=== PATIENT | male | born 1950 | race Caucasian/White ===

== ENCOUNTER 2020-07-03 09:15 | Emergency (ER) | payer OTHER ==
[~2020-07-03] VITALS: Ht 180 cm; Wt 90.0 kg
--- NOTE | 2020-07-03 09:31 | ED Abdominal Pain ---
General Chief Complaint: Abdominal/GI Problems Stated Complaint: RUQ PAIN Source of Information: Patient, EMS Notes Reviewed, Residential Records, RN/MD History of Present Illness Date Seen by Provider: Jul 03, 2020 Time Seen by Provider: 09:15 Initial Comments This patient is a 69-year-old male that recently admitted to the local snf presents to the emergency department with complaint of right upper quadrant abdominal pain. Patient is not very verbal and does not give appropriate history. Patient's medical history from the snf states the patient has history of renal failure and congestive heart failure and dementia/altered mental status. Reportedly the patient was complaining of right upper quadrant abdominal pain. Patient's abdomen is soft and nontender at this time. We'll do medical screening exam and evaluate. Further as needed. Timing/Duration: 1-3 Hours Severity/Quality: Moderate Location: RUQ Radiation: No Radiation Allergies and Home Medications Allergies Coded Allergies: No Known Drug Allergies (Unverified , 07/03/20) Patient Home Medication List Home Medication List Reviewed: Yes Review of Systems Review of Systems Constitutional: No no symptoms reported; see HPI; No chills, No diaphoresis, No dizziness, No fever, No malaise, No weakness, No weight gain, No weight loss, No other EENTM: No No Symptoms Reported, No See HPI, No Blurred Vision, No Double Vision, No Eye Pain, No Eye Tearing, No Ear Drainage, No Ear Pain, No Mouth Pain, No Mouth Swelling, No Nose Congestion, No Nose Pain, No Throat Pain, No Throat Swelling, No Other Respiratory: Denies No Symptoms Reported, Denies See HPI, Denies Cough, Denies Orthopnea, Denies Shortness of Air, Denies SOA With Exertion, Denies SOA at Rest, Denies Stridor, Denies Wheezing, Denies Other Cardiovascular: Denies No Symptoms Reported, Denies See HPI, Denies Chest Pain, Denies Edema, Denies Irregular Heart Rate, Denies Lightheadedness, Denies Palpitations, Denies Syncope, Denies Other Gastrointestinal: Denies No Symptoms Reported; See HPI; Denies Abdomen Distended; Abdominal Pain; Denies Blood Streaked Stools, Denies Constipated, Denies Diarrhea, Denies Difficulty Swallowing, Denies Nausea, Denies Poor Appetite, Denies Poor Fluid Intake, Denies Rectal Bleeding, Denies Vomiting, Denies Other Genitourinary: Denies No Symptoms Reported, Denies See HPI, Denies Burning, Denies Discharge, Denies Drainage, Denies Frequency, Denies Flank Pain, Denies Hematuria, Denies Incontinence, Denies Pain, Denies Urgency, Denies Other Musculoskeletal: No no symptoms reported, No see HPI, No back pain, No gout, No joint pain, No joint swelling, No muscle pain, No muscle stiffness, No muscle cramps, No muscle twitching, No muscle weakness, No neck pain, No other Skin: No no symptoms reported, No see HPI, No change in color, No change in hair/nails, No dryness, No hx of skin cancer, No lesions, No lumps, No pruritus, No rash, No other Psychiatric/Neurological: Denies No Symptoms Reported, Denies See HPI, Denies Anxiety, Denies Depressed, Denies Emotional Problems, Denies Headache, Denies Numbness, Denies Paresthesia, Denies Pre-Existing Deficit, Denies Seizure, Denies Tingling, Denies Tremors, Denies Weakness, Denies Other All Other Systems Reviewed Negative Unless Noted: Yes Past [id number]-[id number] Hx Patient Social History Alcohol Use: Denies Use Recreational Drug Use: No Smoking Status: Current Everyday Smoker Type Used: Cigarettes Recent Hopitalizations: No Physical Abuse: No Sexual Abuse: No Mistreated: No Fear: No Seasonal Allergies Seasonal Allergies: No Past Medical History Surgeries: No Respiratory: No Cardiac: Yes Hypertension, Irregular Heartbeat Neurological: Yes Dementia Genitourinary: Yes Renal Failure Gastrointestinal: No Musculoskeletal: No Endocrine: No HEENT: No Cancer: No Psychosocial: No Integumentary: No Blood Disorders: No Physical Exam Vital Signs Vital Signs - First Documented 07/03/20 09:27 Temp 36.2 Pulse 93 Resp 18 B/P (MAP) 135/87 (103) O2 Delivery Room Air Capillary Refill : Height/Weight/BMI Height: '" Weight: lbs. oz. kg; BMI Method: General Appearance: WD/WN, no apparent distress Respiratory: chest non-tender, lungs clear, normal breath sounds, no respiratory distress, no accessory muscle use Cardiovascular: normal peripheral pulses, regular rate, rhythm, no edema, no gallop, no JVD, no murmur Gastrointestinal: normal bowel sounds, non tender, soft, no organomegaly, no pulsatile mass Extremities: normal range of motion, non-tender, normal inspection, no pedal edema, no calf tenderness, normal capillary refill, pelvis stable Back: normal inspection, no CVA tenderness, no vertebral tenderness Skin: normal color, warm/dry Progress/Results/Core Measures Results/Orders Lab Results Laboratory Tests Test 07/03/20 09:34 Range/Units White Blood Count 15.1 H 4.3-11.0 10^3/uL Red Blood Count 5.23 4.35-5.85 10^6/uL Hemoglobin 14.8 13.3-17.7 G/DL Hematocrit 43 40-54 % Mean Corpuscular Volume 83 80-99 FL Mean Corpuscular Hemoglobin 28 25-34 PG Mean Corpuscular Hemoglobin Concent 34 32-36 G/DL Red Cell Distribution Width 13.8 10.0-14.5 % Platelet Count 156 130-400 10^3/uL Mean Platelet Volume 11.5 H 7.4-10.4 FL Immature Granulocyte % (Auto) 0 % Neutrophils (%) (Auto) 80 H 42-75 % Lymphocytes (%) (Auto) 9 L 12-44 % Monocytes (%) (Auto) 11 0-12 % Eosinophils (%) (Auto) 0 0-10 % Basophils (%) (Auto) 0 0-10 % Neutrophils # (Auto) 12.0 H 1.8-7.8 X 10^3 Lymphocytes # (Auto) 1.4 1.0-4.0 X 10^3 Monocytes # (Auto) 1.6 H 0.0-1.0 X 10^3 Eosinophils # (Auto) 0.0 0.0-0.3 10^3/uL Basophils # (Auto) 0.0 0.0-0.1 10^3/uL Immature Granulocyte # (Auto) 0.1 0.0-0.1 10^3/uL Neutrophils % (Manual) 77 % Lymphocytes % (Manual) 13 % Monocytes % (Manual) 9 % Eosinophils % (Manual) 0 % Basophils % (Manual) 1 % Band Neutrophils 0 % Prothrombin Time 16.4 H 12.2-14.7 SEC INR Comment 1.3 0.8-1.4 Sodium Level 133 L 135-145 MMOL/L Potassium Level 4.1 3.6-5.0 MMOL/L Chloride Level 95 L 98-107 MMOL/L Carbon Dioxide Level 19 L 21-32 MMOL/L Anion Gap 19 H 5-14 MMOL/L Blood Urea Nitrogen 40 H 7-18 MG/DL Creatinine 1.04 0.60-1.30 MG/DL Estimat Glomerular Filtration Rate > 60 BUN/Creatinine Ratio 38 Glucose Level 158 H 70-105 MG/DL Calcium Level 9.4 8.5-10.1 MG/DL Corrected Calcium 9.6 8.5-10.1 MG/DL Total Bilirubin 1.2 H 0.1-1.0 MG/DL Aspartate Amino Transf (AST/SGOT) 15 5-34 U/L Alanine Aminotransferase (ALT/SGPT) 15 0-55 U/L Alkaline Phosphatase 81 40-136 U/L Total Protein 8.1 6.4-8.2 GM/DL Albumin 3.8 3.2-4.5 GM/DL Lipase 9 8-78 U/L My Orders Orders - NAYA CHARLES MD Ed Iv/Invasive Line Start (07/03/20 09:27) Cbc With Automated Diff (07/03/20 09:27) Comprehensive Metabolic Panel (07/03/20 09:27) Lipase (07/03/20 09:27) Urinalysis (07/03/20 09:27) Abdomen Flat & Upright/Decub (07/03/20 09:27) Protime With Inr (07/03/20 09:27) Ammonia (07/03/20 09:28) Manual Differential (07/03/20 09:34) Ns Iv 500 Ml (Sodium Chloride 0.9%) (07/03/20 10:56) Iohexol Injection (Omnipaque 350 Mg/Ml 1 (07/03/20 11:30) Received Contrast (Hold Metformin- Contr (07/03/20 11:30) Sodium Chloride Flush (Catheter Flush Sy (07/03/20 11:30) Ns (Ivpb) (Sodium Chloride 0.9% Ivpb Bag (07/03/20 11:30) Ct Abdomen/Pelvis W (07/03/20 10:55) Medications Given in ED Current Medications Medications Dose Ordered Sig/Murtaza Route Start Time Stop Time Status Last Admin Dose Admin Iohexol 100 ml ONCE ONCE IV 07/03/20 11:30 07/03/20 11:31 DC 07/03/20 11:41 100 ML Sodium Chloride 10 ml NEEDED PRN IV 07/03/20 11:30 07/03/20 11:35 10 ML Sodium Chloride 100 ml ONCE ONCE IV 07/03/20 11:30 07/03/20 11:31 DC 07/03/20 11:41 80 ML Vital Signs/I&O 07/03/20 09:27 Temp 36.2 Pulse 93 Resp 18 B/P (MAP) 135/87 (103) O2 Delivery Room Air Progress Progress Note : Time: 12:39 Progress Note Negative evaluation in the emergency department for any acute findings. CT scan does show a questionable right lower lobe pneumonia versus atelectasis and hypoventilation. White count is 15,000. We will have her give the patient a dose of Rocephin in the emergency department and placed on Zithromax. Patient is encouraged a clear liquid diet and advance diet slowly. Patient is discharged Departure Impression Primary Impression: Abdominal pain Disposition: [facility] Condition: Stable Departure-Patient Inst. Decision time for Depature: 12:40 Patient Instructions: Severe Abdominal Pain, Adult (DC) Add. Discharge Instructions: Encourage by mouth fluids. Take medications as instructed. Clear liquid diet and advance diet as tolerated slowly. Follow up with PCP in 2 to All discharge instructions reviewed with patient and/or family. Voiced understanding. Scripts Dicyclomine HCl (Dicyclomine HCl) 20 Mg Tablet 20 MG PO BID, #20 TAB 0 Refills Prov: NAYA CHARLES MD 07/03/20 Azithromycin (Azithromycin) 250 Mg Tablet 250 MG PO UD, #6 TAB 0 Refills TAKE 2 TABLETS ON DAY ONE THEN TAKE 1 TABLET DAILY FOR FOUR MORE DAYS Prov: NAYA CHARLES MD 07/03/20 NAYA CHARLES MD Jul 03, 2020 09:31
[2020-07-03 09:45] LABS: HEMATOCRIT 43 % (40-54); HEMOGLOBIN 14.8 G/DL (13.3-17.7); MEAN CORPUSCULAR HEMOGLOBIN 28 PG (25-34); MEAN CORPUSCULAR HGB CONC 34 G/DL (32-36); MEAN CORPUSCULAR VOLUME 83 FL (80-99); MEAN PLATELET VOLUME 11.5 FL (7.4-10.4); PLATELET COUNT 156 10^3/uL (130-400); WHITE BLOOD COUNT 15.1 10^3/uL (4.3-11.0)
[2020-07-03 09:46] LABS: BASOPHILS % (AUTO) 0 % (0-10); EOSINOPHILS % (AUTO) 0 % (0-10); LYMPHOCYTES # (AUTO) 1.4 X 10^3 (1.0-4.0); LYMPHOCYTES % (AUTO) 9 % (12-44); MONOCYTES # (AUTO) 1.6 X 10^3 (0.0-1.0); MONOCYTES % (AUTO) 11 % (0-12); NEUTROPHILS % (AUTO) 80 % (42-75)
[2020-07-03 10:01] LABS: PROTHROMBIN TIME PATIENT 16.4 SEC (12.2-14.7)
[2020-07-03 10:02] LABS: INR 1.3 (0.8-1.4)
[2020-07-03 10:09] LABS: BAND NEUTROPHILS 0 %; BASOPHILS % (MANUAL) 1 %; EOSINOPHILS % (MANUAL) 0 %; LYMPHOCYTES % (MANUAL) 13 %; MONOCYTES % (MANUAL) 9 %; NEUTROPHILS % (MANUAL) 77 %
[2020-07-03 10:11] LABS: ALANINE AMINOTRANSFERASE 15 U/L (0-55); ALKALINE PHOSPHATASE 81 U/L (40-136); BILIRUBIN,TOTAL 1.2 MG/DL (0.1-1.0); BUN/CREATININE RATIO 38; CALCIUM 9.4 MG/DL (8.5-10.1); CARBON DIOXIDE 19 MMOL/L (21-32); CHLORIDE 95 MMOL/L (98-107); CREATININE SERUM 1.04 MG/DL (0.60-1.30); GFR ESTIMATED > 60; GLUCOSE 158 MG/DL (70-105); POTASSIUM 4.1 MMOL/L (3.6-5.0); SODIUM 133 MMOL/L (135-145); TOTAL PROTEIN 8.1 GM/DL (6.4-8.2)
[2020-07-03 10:12] LABS: ALBUMIN 3.8 GM/DL (3.2-4.5); LIPASE 9 U/L (8-78)
--- NOTE | 2020-07-03 10:34 | Diagnostic Imaging Report ---
EXAMINATION: Abdomen, flat and erect. INDICATION: Abdominal pain. TECHNIQUE/COMPARISON: Supine and erect views of the abdomen were obtained. There are no prior studies available for comparison. FINDINGS: There are several dilated gas filled segments of small bowel in the left mid abdomen. This appearance is nonspecific. This could be secondary to an ileus. The possibility that there is a partial or intermittent small bowel obstruction would be less likely but should still be considered. If further evaluation is desired, then either a contrast small bowel exam or CT of the abdomen and pelvis should be obtained. There is also some gas within the colon as well as a moderate amount of fecal material throughout the ascending colon. There is no pneumoperitoneum. There is no mass, organomegaly, or pathological calcification evident. The osseous structures are intact. IMPRESSION: 1. The dilated gas-filled segments of small bowel in the left mid abdomen are nonspecific. Considerations and recommendations as above. 2. There is no acute abnormality of the abdomen or pelvis noted otherwise. Dictated by: Dictated on workstation # [id number]
[2020-07-03] MEDS ORDERED: NS IV 500 ML 500 ML IV STA (10:56)
[2020-07-03] MEDS ORDERED: CATHETER FLUSH 10 ML SYR IV PRN (11:30)
[2020-07-03] MEDS ORDERED: NS 100 ML (IVPB) BAG IV ONE (11:30)
[2020-07-03] MEDS ORDERED: HOLD METFORMIN - RECEIVED CONTRAST 20 ML VIAL IV SCH (11:30)
[2020-07-03] MEDS ORDERED: IOHEXOL 350 MG/ML 100 ML (OMNIPAQUE 350) VIAL IV ONE (11:30)
--- NOTE | 2020-07-03 12:17 | Diagnostic Imaging Report ---
PROCEDURE: CT abdomen and pelvis with contrast. TECHNIQUE: Multiple contiguous axial images were obtained through the abdomen and pelvis after administration of intravenous contrast. Auto Exposure Controls were utilized during the CT exam to meet ALARA standards for radiation dose reduction. INDICATION: Abdominal pain. COMPARISON: There are no prior CT examinations available for comparison. FINDINGS: The plain film examination of the abdomen performed earlier today at 09:34 a.m. did note several dilated gas-filled segments of small bowel in the left mid abdomen. It is not certain whether these findings were related to an ileus or to a partial/intermittent small bowel obstruction. On this exam, there are again a number of dilated gas-filled segments of small bowel in the left mid abdomen. There is also a fair amount of gas and fecal material in the ascending and transverse colon. There is no sign of a bowel obstruction. The sections through the low pelvis do show a focal area of narrowing of the midportion of the sigmoid colon. This finding may be secondary to incomplete distention. The possibility that there is a constricting neoplasm would be less likely but should still be considered. I would recommend that either air contrast colon exam or endoscopy be performed for further study. There is no pelvic mass or free fluid collection noted. The urinary bladder and prostate gland are grossly unremarkable. The appendix is not well-visualized but there are no indirect signs of acute appendicitis. The liver is of lower density and easily seen. This does suggest fatty metamorphosis. There do appear to be a few minute gallstones within the gallbladder. There is no sign of acute cholecystitis. The spleen, pancreas, kidneys, adrenals, aorta and inferior vena cava show no sign of an acute abnormality. The portal vein was not well visualized. Stomach is filled with fluid and difficult to assess. There is mild right lower lobe pneumonia/atelectasis. The left lung bases are generally clear. The bone windows are unremarkable for fracture or for destructive lesion. IMPRESSION: 1. The dilated gas-filled segments of small bowel seen on the plain film exam are again evident. There is no sign of a bowel obstruction and this finding may be secondary to a mild ileus. 2. There is no acute abnormality of the abdomen or pelvis noted otherwise. 3. The area of constriction in the mid sigmoid colon is more likely due to incomplete distention than to a constricting lesion. Recommendations as above. 4. There is mild right lower lobe pneumonia/atelectasis. Dictated by: Dictated on workstation # [id number]
[2020-07-03] MEDS ORDERED: DICY20TA10 PO (12:42)
[2020-07-03] MEDS ORDERED: AZIT250T12 PO (12:42)
[2020-07-03] MEDS ORDERED: cefTRIAXone FOR IV USE 1,000 MG in WATER (STERILE) FOR INJECTION 10 ML IV ONE (12:45)
[2020-07-03 12:53] VITALS: BP 133/68
[2020-07-03 15:59] LABS: AMMONIA 36 UMOL/L (11-32)
== END 2020-07-03 13:20 ==
LOC: ER FS 09:19
DX: R10.11 Right upper quadrant pain (principal); I11.9 Hypertensive heart disease without heart failure; I50.9 Heart failure, unspecified; F17.210 Nicotine dependence, cigarettes, uncomplicated
CPT/HCPCS: 36415; 74019; 74177; 80053; 82140; 83690; 85007; 85027; 85610